=== PATIENT | male | born 1945 | race Caucasian/White ===

== ENCOUNTER 2019-09-16 10:28 | Emergency (ER) | payer MEDICARE, SELFPAY ==
[2019-09-16] VITALS (93 sets, daily range): BP systolic 61–119; BP diastolic 40–81; PULSE 74–114; RESP 12–25; TEMP 36.4–38; O2SAT 84–100
--- NOTE | ~2019-09-16 | XR_ITS ---
XR chest 1V 09/16/2019 11:28 Indication: Chest pain after fall. Weakness. Procedure: AP view of the chest Comparison: Comparison to multiple prior studies sequentially, with oldest reviewed study dated 11/08. Findings: Heart size is normal for technique. Pacemaker leads are stable. No focal air space disease, pulmonary edema, pleural effusion or suspected pneumothorax. No acute osseous abnormality. Impression: 1: No acute cardiopulmonary disease. Reviewed, dictated and finalized at location A. Impression: 1: No acute cardiopulmonary disease.
--- NOTE | ~2019-09-16 | XR_ITS ---
XR ankle LT min 3V, XR foot LT min 3V 09/16/2019 11:28 Indication: Left foot and ankle pain after fall Procedure: 4 views left ankle and 4 views left foot Comparison: No prior studies for comparison. Findings: There are degenerative changes of the left ankle and midfoot. Osteopenia. Degenerative calc aneal enthesophyte. Lisfranc joint is intact. No acute fracture or traumatic malalignment. Impression: 1: No acute fracture. Reviewed, dictated and finalized at location A. Impression: 1: No acute fracture. Impression: 1: No acute fracture.
--- NOTE | ~2019-09-16 | CT_ITS ---
EXAMINATION: CT brain wo con DATE: 09/16/2019 11:05 INDICATION: Status post fall. Headache. TECHNIQUE: Computed tomography (CT) of the head was performed without intravenous contrast. The dose- length product was 605.33 mGy-cm. The mA was adjusted according to patient size. Iterative reconstruc tion technique was employed. COMPARISON: CT dated 05/20/2017 FINDINGS: Generalized atrophy. There are scattered moderate periventricular and subcortical white mat ter changes, most likely related to small vessel ischemic disease (microangiopathy). No acute intracr anial hemorrhage, infarction, mass or mass effect. Basilar cisterns are patent. Paranasal sinuses and mastoids are pneumatized. No depressed skull fractures. IMPRESSION: 1. No acute intracranial abnormality. 2: Chronic age-related findings. Reviewed, dictated and finalized at location A.
--- NOTE | ~2019-09-16 | XR_ITS ---
XR femur LT min 2V, XR knee LT min 4V 09/16/2019 11:28 Indication: Left leg pain after fall Procedure: 2 views left femur and 4 views left knee Comparison: No prior studies for comparison. Findings: There are mild degenerative changes of the left hip and knee. Normal mineralization. No acu te fracture or traumatic malalignment. No significant joint effusion. No foreign bodies. Impression: 1: No acute fracture. Reviewed, dictated and finalized at location A. Impression: 1: No acute fracture. Impression: 1: No acute fracture.
--- NOTE | ~2019-09-16 | CT_ITS ---
EXAMINATION: CT abdomen pelvis w con DATE: 09/16/2019 14:21 INDICATION: Diarrhea. TECHNIQUE: Computed tomography (CT) of the abdomen and pelvis was performed with 100 cc Omnipaque 350 intravenous contrast. The dose-length product was 1362.08 mGy-cm. Automated exposure control and ite rative reconstruction technique were employed. COMPARISON: CT dated 05/20/2017 FINDINGS: Small bilateral pleural effusions. Bibasilar at dependent atelectasis. Heart size normal. T here is atherosclerosis. There is an IVC filter present. Mildly enlarged retroperitoneal lymph nodes, likely reactive. There is abnormal thickening of the distal descending and proximal sigmoid colon co nghia. There is also mild thickening of the rectum. There is abnormal fluid tracking from the rectum po steriorly with nondependent high density fluid posterior to the rectum measuring 55 Hounsfield units, suspicious for hemorrhage mild lumbar spondylosis. The liver, spleen, pancreas, adrenal glands and kidneys are unremarkable. Gallbladder is moderately d istended. No definite gallstones. IMPRESSION: 1. Mild thickening of the rectum with fluid tracking posteriorly. High density fluid noted dependentl y, suspicious for hemorrhage, uncertain origin. Differential diagnosis includes superior to fluid sec ondary to infectious/inflammatory etiologies. No walled off abscess is identified. 2: Abnormal thickening of the distal descending and proximal sigmoid colon which may reflect infecti ous/inflammatory etiology, although colon carcinoma is not excluded. 3: Small bilateral pleural effusions with dependent atelectasis. Reviewed, dictated and finalized at location A. IMPRESSION: 1. Mild thickening of the rectum with fluid tracking posteriorly. High density fluid noted dependently, suspicious for hemorrhage, uncertain origin. Different ial diagnosis includes superior to fluid secondary to infectious/inflammatory e tiologies. No walled off abscess is identified. 2: Abnormal thickening of the distal descending and proximal sigmoid colon whi ch may reflect infectious/inflammatory etiology, although colon carcinoma is no t excluded. 3: Small bilateral pleural effusions with dependent atelectasis.
--- NOTE | 2019-09-16 10:40 | PC.NURSE ---
Fall last evening. Unknown if he hit head. Unsure why he fall. Abrasion to left knee, cleaned and bandaged by EMS who were called last evening after fall, but patient was not transported. Bruising noted on right arm. Chronic left arm pain due to Shingles.
--- NOTE | 2019-09-16 10:46 | ECG_ITS ---
Measurements Intervals Martin Rate: 103 P: 38 MS: 183 QRS: -84 QRSD: 109 T: 44 QT: 363 QTc: 475 Interpretive Statements ATRIAL SENSE- ELECTRONIC VENTRICULAR PACEMAKER BASELINE ARTIFACT- I, II, AVR, AVL, V1 NO FURTHER INTERPRETATION IS POSSIBLE ATYPICAL ECG Electronically Signed On 09-17-2019 8:21:14 CDT by Jone Estevez D.O.
--- NOTE | 2019-09-16 10:48 | ED.GENADULT ---
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 Patient states they has had been fighting Mantle cell lymphoma off and on for years. He reports in May he found out he was out of remission. He has been having frequent, watery diarrhea for 5 weeks. He reports today his called 911 because he started dripping bright red blood per rectum today. He believes this is due to his hemorrhoids that intermittently bleeding. He denies having blood in his stools with his diarrhea. He also denies abdominal pain although he has been told he has a new mass in left abdomen on his last CT scan. He denies nausea or vomiting. He does state he finished antibiotics before his diarrhea started. Patient is also concerned because he has progressive weakness. Yesterday EMS was called to his home due to fall but they declined transport. PAtient states he was turning the corner at his house when he fell. He has an abrasion to his left knee and pain to left thigh, left ankle and left foot. He is not sure if he hit his head but he reports posterior head pain that has been present for 5 weeks. He is scheduled for CT scan of head on Tuesday. Related Data Home Medications Medication Instructions Recorded Confirmed albuterol sulfate 2.5 mg INHALATION Q4-6H PRN 07/02/19 07/10/19 albuterol sulfate 90 mcg/actuation 1 puff INHALATION Q4H PRN 07/02/19 07/10/19 aerosol inhaler allopurinol 300 mg tablet 300 mg PO DAILY 07/02/19 07/10/19 cholecalciferol (vitamin D3) 125 125 mcg PO DAILY 07/02/19 07/10/19 mcg (5,000 unit) tablet cyanocobalamin (vitamin B-12) 1,000 mcg SUBLINGUAL DAILY 07/02/19 07/10/19 1,000 mcg sublingual tablet fluticasone 250 mcg-salmeterol 50 1 inhalation INHALATION BID 07/02/19 07/10/19 mcg/dose blistr powdr for inhalation fluticasone propionate 50 2 spray NASAL DAILY 07/02/19 07/10/19 mcg/actuation nasal spray,suspension furosemide 20 mg tablet 20 mg PO QAM 07/02/19 07/10/19 potassium chloride 10 mEq 10 meq PO DAILY 07/02/19 07/10/19 capsule,extended release tramadol 50 mg tablet 50 mg PO Q6H PRN 07/02/19 07/10/19 Allergies Allergy/AdvReac Type Severity Reaction Status Date / Time amoxicillin Allergy Unknown rash Verified 09/16/19 10:50 carbamazepine Allergy Unknown Unknown Verified 09/16/19 10:50 ciprofloxacin Allergy Unknown Muscle Pain Verified 09/16/19 10:50 gabapentin Allergy Unknown Depression Verified 09/16/19 10:50 lidocaine Allergy Unknown Unknown Verified 09/16/19 10:50 monosodium glutamate Allergy Unknown Unknown Verified 09/16/19 10:50 nitrofurantoin Allergy Unknown rash Verified 09/16/19 10:50 Penicillins Allergy Unknown Rash Verified 09/16/19 10:50 pregabalin Allergy Unknown unknown Verified 09/16/19 10:50 valacyclovir Allergy Unknown ITCHING, Verified 09/16/19 10:50 FLUSH Review of Systems Review of Systems: All systems reviewed & are unremarkable except as noted in HPI and below Constitutional: Constitutional: Denies chills, Denies fever(s) and Reports weakness Eyes: Eyes: Denies change in vision Cardiovascular: Cardiovascular: Denies chest pain Respiratory: Respiratory: Denies cough and Denies dyspnea Gastrointestinal: Gastrointestinal: Denies abdominal pain, Reports diarrhea, Denies nausea, Denies vomiting and Reports other (rectal bleeding) Musculoskeletal: Musculoskeletal: Reports arthralgias (left thigh pain, left knee pain, left ankle pain) Integumentary/Breasts: Comments: left knee wound Neurologic: Reports headache(s) Endocrine: Endocrine: Reports fatigue PMFSH Social Hist
[2019-09-16] MEDS: LACTATED RINGERS 1,000 ML 999 ML IV CONT ×3 (10:52→14:06)
--- NOTE | 2019-09-16 11:00 | PC.NURSE ---
Unable to verify patients medications. Pt was unable to verbally tell me or confirm medications and he did not have a list.
--- NOTE | 2019-09-16 11:04 | PC.NURSE ---
Pt to CT on monitor
[2019-09-16 11:05] LABS: Basophils Absolute Auto 0.1 K/mm3 (0.0-0.1); Basophils Percent Auto 0.6 % (0.2-1.2); Eosinophils Absolute Auto 0.1 K/mm3 (0-0.3); Eosinophils Percent Auto 0.5 % (0-4.4); Hematocrit 33.9 % (42.0-52.0); Hemoglobin 11.2 g/dL (14.0-18.0); Immature Granulocyte Absolute 0.12 K/mm3 (0.00-0.031); Immature Granulocyte Percent A 0.8 % (0-0.5); Lymphocytes Absolute Auto 1.76 K/mm3 (0.9-3.2); Lymphocytes Percent Auto 11.4 % (18.3-44.2); Mean Corpuscular Hemoglobin 34.3 pg (26-34); Mean Corpuscular Volume 103.7 fl (80-100); Mean Platelet Volume 9.7 fl (7.4-10.4); Monocytes Percent Auto 6.1 % (2.6-8.5); Neutrophils Absolute Auto 12.5 K/mm3 (1.3-6.7); Neutrophils Percent Auto 80.6 % (45.5-73.1); Platelet Count Result 206 k/mm3 (150-375); Red Blood Count 3.27 M/mm3 (4.6-6.20); Red Cell Distribution Width 15.2 % (11.5-14.5); White Blood Count 15.5 K/mm3 (4.5-10.0)
--- NOTE | 2019-09-16 11:11 | PC.NURSE ---
Pt to radiolog. Pt on monitor
--- NOTE | 2019-09-16 12:49 | PC.NURSE ---
Assissted rolling patient so EDP can check patients bottom. EDP at bedside updating pt on plan of care
--- NOTE | 2019-09-16 13:17 | PC.NURSE ---
Tried sticking patient multiple times. I was unable to draw at this time.
--- NOTE | 2019-09-16 13:23 | PC.NURSE ---
Lab at bedside trying to obtain blood
[2019-09-16 13:51] LABS: Alanine Aminotransferase 10 U/L (4-50); Albumin Level 2.3 g/dL (3.5-5.1); Alkaline Phosphatase 63 U/L (38-126); Aspartate Amino Transferase 17 U/L (17-59); Bilirubin,Total 0.4 mg/dL (0.2-1.3); Blood Urea Nitrogen 19 mg/dL (9-20); Carbon Dioxide 24 mmol/L (22-30); Chloride 106 mmol/L (98-107); Estimated CRCL calculation 66 ml/min; Estimated Glomerular Filt Rate > 60; Glucose 82 mg/dL (75-110); Sodium 132 mmol/L (137-145)
[2019-09-16 13:52] LABS: Lactic Acid Reflex 1.1 mmol/L (0.7-2.1)
[2019-09-16 13:53] LABS: Prothrombin Time 105.2 Seconds (11.1-14.7)
[2019-09-16 13:57] LABS: INR 14.4; Partial Thromboplastin Time 163.3 SECONDS (22.3-36.8)
[2019-09-16] MEDS: PHYTONADIONE ADULT INJ 10 MG in DEXTROSE 5% IN WATER 50 ML 100 MG IVPB (14:33)
--- NOTE | 2019-09-16 15:00 | PC.NURSE ---
LR stopped due to only 1 IV access and compatibility of that and other medication running.
[2019-09-16] MEDS: metroNIDAZOLE 500 MG/ISO 100ML 500 MG/100 ML BAG 100 MG IVPB (15:19)
--- NOTE | 2019-09-16 15:46 | PC.NURSE ---
Matthew at bedside trying to start 2nd line
--- NOTE | 2019-09-16 15:56 | PC.NURSE ---
Main lab called to communicate order that we needed 4 units of FFP ordered on this patient. Talked with Harvey. Said he would change the order in blood bank since it would not allow us to do it in the order sets.
[2019-09-16 16:47] LABS: Hematocrit 29.2 % (42.0-52.0); Hemoglobin 9.6 g/dL (14.0-18.0)
--- NOTE | 2019-09-16 17:13 | PC.NURSE ---
Unable to scan all barcodes on FFP due to sticker placed over it. That is reason for override on [facility]
--- NOTE | 2019-09-16 18:01 | PC.NURSE ---
Gina E[facility] accepted transfer to [facility] 45min
--- NOTE | 2019-09-16 18:31 | PC.NURSE ---
Pt asked for urinal. Gave it to him, but lost control before was able to go in urinal. Cleaned pt up and put him in clean depends
== END 2019-09-16 18:48 | disposition short-term general hospital (02) ==
PROVIDERS: Emergency Provider General Practice; PCP Family Medicine
DX: C83.10 Mantle cell lymphoma, unspecified site (principal); D64.9 Anemia, unspecified; Z86.711 Personal history of pulmonary embolism; Z86.718 Personal history of other venous thrombosis and embolism; Z87.891 Personal history of nicotine dependence; Z79.01 Long term (current) use of anticoagulants; R93.3 Abnormal findings on diagnostic imaging of other parts of digestive tract; S80.212A Abrasion, left knee, initial encounter; M79.652 Pain in left thigh; M25.572 Pain in left ankle and joints of left foot; W18.39XA Other fall on same level, initial encounter
CPT/HCPCS: 36415; 36430; 70450; 71045; 73552; 73564; 73610; 73630; 74177; 80053; 83605; 85014; 85018; 85025; 85610; 85730; 86850; 86900; 86901; 87324; 93005; 96361; 96365; 96367; 99285; J3430; J7120; P9017; Q9967